=== PATIENT | female | born 1960 | race Caucasian/White ===

== ENCOUNTER 2022-06-13 07:43 | Inpatient (IN) ==
--- NOTE | 2022-04-25 13:11 | PAT Medication Instructions ---
Medication Instructions Date of Service April 25, 2022 Home Medications albuterol 90 mcg/actuation aerosol inhaler 90 mcg inhalation QID PRN Shortness Of Breath Or Wheezing ascorbic acid (vitamin C) 500 mg tablet (Vitamin C) 500 mg PO QPM buspirone 15 mg tablet 15 mg PO BID calcium carbonate 500 mg calcium (1,250 mg) tablet 500 mg PO QAM cholecalciferol (vitamin D3) 50 mcg (2,000 unit) tablet (Vitamin D3) 50 mcg PO QAM clonidine HCl 0.1 mg tablet 0.1 mg PO QAM docusate sodium 100 mg tablet (Stool Softener) 100 mg PO QAM etodolac 400 mg tablet 400 mg PO BID fluticasone propionate 110 mcg/actuation HFA aerosol inhaler 2 puff inhalation BID gabapentin 300 mg tablet 300 mg PO BID galcanezumab-gnlm 120 mg/mL subcutaneous syringe (Emgality) 120 mg subcut UD ixekizumab 80 mg/mL subcutaneous auto-injector (Taltz Autoinjector) 80 mg subcut UD ketorolac 10 mg tablet 10 mg PO TID PRN Pain omega-3 fatty acids 500 mg capsule 500 mg PO QAM oxycodone 10 mg tablet 10 mg PO Q6H PRN Pain promethazine 25 mg tablet 25 mg PO TID PRN Nausea turmeric 400 mg capsule 400 mg PO QAM vilazodone 40 mg tablet (Viibryd) 40 mg PO QAM ASK your surgeon for instructions etodolac 400 mg tablet 400 mg PO BID ketorolac 10 mg tablet 10 mg PO TID PRN Pain ASK your prescriber and surgeon galcanezumab-gnlm 120 mg/mL subcutaneous syringe (Emgality) 120 mg subcut UD ixekizumab 80 mg/mL subcutaneous auto-injector (Taltz Autoinjector) 80 mg subcut UD STOP taking 2 weeks before surgery omega-3 fatty acids 500 mg capsule 500 mg PO QAM turmeric 400 mg capsule 400 mg PO QAM DO NOT take the morning of surgery calcium carbonate 500 mg calcium (1,250 mg) tablet 500 mg PO QAM cholecalciferol (vitamin D3) 50 mcg (2,000 unit) tablet (Vitamin D3) 50 mcg PO QAM docusate sodium 100 mg tablet (Stool Softener) 100 mg PO QAM Take morning of surgery With a small sip of water, OTHERWISE NOTHING TO EAT OR DRINK AFTER MIDNIGHT: albuterol 90 mcg/actuation aerosol inhaler 90 mcg inhalation QID PRN Shortness Of Breath Or Wheezing (use if needed; please bring with you to hospital day of surgery if possible) buspirone 15 mg tablet 15 mg PO BID clonidine HCl 0.1 mg tablet 0.1 mg PO QAM fluticasone propionate 110 mcg/actuation HFA aerosol inhaler 2 puff inhalation BID gabapentin 300 mg tablet 300 mg PO BID oxycodone 10 mg tablet 10 mg PO Q6H PRN Pain (if needed) promethazine 25 mg tablet 25 mg PO TID PRN Nausea (if needed) vilazodone 40 mg tablet (Viibryd) 40 mg PO QAM Take evening before surgery albuterol 90 mcg/actuation aerosol inhaler 90 mcg inhalation QID PRN Shortness Of Breath Or Wheezing (if needed) ascorbic acid (vitamin C) 500 mg tablet (Vitamin C) 500 mg PO QPM buspirone 15 mg tablet 15 mg PO BID fluticasone propionate 110 mcg/actuation HFA aerosol inhaler 2 puff inhalation BID gabapentin 300 mg tablet 300 mg PO BID oxycodone 10 mg tablet 10 mg PO Q6H PRN Pain (if needed) promethazine 25 mg tablet 25 mg PO TID PRN Nausea (if needed) Other Notes If you have any questions please call us at [phone] or [phone] or [phone] or [phone]
--- NOTE | 2022-05-02 14:11 | Anesthesiology Consultation ---
Date of Service May 02, 2022 Assessment & Plan (1) Encounter for pre-operative examination: - to anesthesiologist discretion if cervical spine x-ray is needed DOS. Chart Review Chart Review: Acceptable Risk for Surgery and Patient seen in Pre Admission Testing Teaching & Discussion Pre-Anesthesia Teaching/Discussion Notes: Instructed NPO after midnight before surgery, except medications with 15 cc of water. Medication instructions provided according to the PAT guidelines. History Surgery Operation Date: 05/16/22 10:05 Proposed Procedures p L3-L4 Decompression and Fusion, L4-S1 Hardware Removal - Huey Bhatt DO Height/Weight Height: 5 ft Weight: 65.771 kg Allergies Allergy/AdvReac Type Severity Reaction Status Date / Time pregabalin [From Lyrica] AdvReac Mild Dizziness Verified 04/25/22 09:21 topiramate [From Topamax] AdvReac Mild disoriented Verified 04/25/22 09:21 Medications Home Medications Medication Instructions Recorded Confirmed Last Taken albuterol 90 mcg/actuation aerosol 90 mcg inhalation QID PRN 04/25/22 04/25/22 Unknown inhaler Shortness Of Breath Or Wheezing ascorbic acid (vitamin C) 500 mg 500 mg PO QPM 04/25/22 04/25/22 Unknown tablet (Vitamin C) buspirone 15 mg tablet 15 mg PO BID 04/25/22 04/25/22 Unknown calcium carbonate 500 mg calcium 500 mg PO QAM 04/25/22 04/25/22 Unknown (1,250 mg) tablet cholecalciferol (vitamin D3) 50 50 mcg PO QAM 04/25/22 04/25/22 Unknown mcg (2,000 unit) tablet (Vitamin D3) clonidine HCl 0.1 mg tablet 0.1 mg PO QAM 04/25/22 04/25/22 Unknown docusate sodium 100 mg tablet 100 mg PO QAM 04/25/22 04/25/22 Unknown (Stool Softener) etodolac 400 mg tablet 400 mg PO BID 04/25/22 04/25/22 Unknown fluticasone propionate 110 2 puff inhalation BID 04/25/22 04/25/22 Unknown mcg/actuation HFA aerosol inhaler gabapentin 300 mg tablet 300 mg PO BID 04/25/22 04/25/22 Unknown galcanezumab-gnlm 120 mg/mL 120 mg subcut UD 04/25/22 04/25/22 Unknown subcutaneous syringe (Emgality) ixekizumab 80 mg/mL subcutaneous 80 mg subcut UD 04/25/22 04/25/22 Unknown auto-injector (Taltz Autoinjector) ketorolac 10 mg tablet 10 mg PO TID PRN Pain 04/25/22 04/25/22 Unknown omega-3 fatty acids 500 mg capsule 500 mg PO QAM 04/25/22 04/25/22 Unknown oxycodone 10 mg tablet 10 mg PO Q6H PRN Pain 04/25/22 04/25/22 Unknown promethazine 25 mg tablet 25 mg PO TID PRN Nausea 04/25/22 04/25/22 Unknown turmeric 400 mg capsule 400 mg PO QAM 04/25/22 04/25/22 Unknown vilazodone 40 mg tablet (Viibryd) 40 mg PO QAM 04/25/22 04/25/22 Unknown dexlansoprazole 30 mg 30 mg PO QPM 05/02/22 05/02/22 Unknown capsule,biphase delayed release (Dexilant) Past Medical History Medical History (Updated 05/02/22 @ 14:16 by Irene Velarde PA-C) Ankylosing spondylitis Anxiety and depression Asthma controlled, stable per pt; last rescue inhaler use > 1 month ago Chronic pain GERD (gastroesophageal reflux disease) controlled, stable per pt History of anemia History of blood transfusion anemia, 2013 HNP (herniated nucleus pulposus) Migraine LEIF (obstructive sleep apnea) CPAP-compliant Rheumatoid arthritis Patient denies h/o stroke, seizures, heart attack, heart failure, DM, HTN, or blood clots. Exercise / Class Metabolic Activity II 4-5 Yardwork/Stairs/Walk up hill (denies chest discomfort or shortness of breath with 1 FOS) Past Family History Family History Other No family history of adverse response to anesthesia Past Surgical History Surgical History (Updated 05/02/22 @ 14:17 by Irene Velarde PA-C) History of abdominoplasty History of bilateral breast reduction surgery History of carpal tunnel release of both wrists History of lumbar surgery History of open reduction and internal fixation (ORIF) procedure right ankle Hx of appendectomy Hx of arthroscopic knee surgery left (03/2022- [facility]) Hx of colonoscopy Hx of endoscopy Nausea and vomiting after administration of anesthetic agent denies needing scop patch Past Anesthesia History No Family Hx of Anesthesia Complications and Other (slow to wake up, h/o post-op hypotension) History of PONV No Hx of Motion Sickness and History of PONV (denies needing scop patch) Social History Smoking Status: Former smoker tobacco type: cigarettes Smoking cigarettes per day: quit 10 yrs ago Do You Dip or Chew Tobacco: No Hx Alcohol Use: No Hx Substance Use: No substance use type: does not use Review of Systems Patient denies chest pain, shortness of breath, dyspnea on exertion, fever, ch ills, cough, wheezing, or palpitations. Physical Exam Vital Signs Vitals BP 101/70 (pt states this is typical BP reading) P 66 TEMP 98.8 SP02 97% on RA RESP 18 Physical Full cervical extension range of motion without pain TMD 3.5 finger breadths Mallampati Score 2 Dentition: partial left upper side; denies chipped or loose teeth, caps/crowns, implants or bridges Lungs: normal respiratory effort. Clear throughout to auscultation, no adventitious breath sounds Cardiac: regular rate and rhythm, no murmurs noted Carotid arteries: negative bruit bilat Lab Results Anesthesia Preop Results Results Anesthesia Widget: WBC 5.81 K/ul (4.8-10.8) 05/02/22 Hgb 11.6 g/dl (12.0-16.0) L 05/02/22 Hct 35.2 % (37.0-47.0) L 05/02/22 Plt 316 K/uL (130-400) 05/02/22 Na 142 mmol/L (136-145) 05/02/22 K 4.0 mmol/L (3.5-5.1) 05/02/22 Cl 108 mmol/L (98-107) H 05/02/22 CO2 29 mmol/L (21-32) 05/02/22 BUN 18 mg/dl (6-23) 05/02/22 Creat 0.68 mg/dl (0.6-1.2) 05/02/22 Glucose Level 81 mg/dl (70-99(Fasting)) 05/02/22 PT 10.8 Seconds (9.0-12.0) 05/02/22 PTT 25.3 Seconds (21.0-31.0) 05/02/22 INR 1.0 (0.9-1.1) 05/02/22 Urine Color Yellow 05/02/22 Urine Appearance Clear (Clear) 05/02/22 Urine pH 7.0 (4.5-7.5) 05/02/22 Urine Specific [place] 1.010 (1.000-1.030) 05/02/22 Urine Protein Negative (Negative) 05/02/22 Urine Glucose (UA) Negative (Negative) 05/02/22 Urine Ketones Negative (Negative) 05/02/22 Urine Blood Negative (Negative) 05/02/22 Urine Nitrite Negative (Negative) 05/02/22 Urine Bilirubin Negative (Negative) 05/02/22 Urine Urobilinogen Negative (Negative) 05/02/22 Urine Leukocyte Esterase 1+ (Negative) H 05/02/22 Urine WBC (Auto) 1-5 /hpf (0-5) 05/02/22 Urine RBC (Auto) 5-10 /hpf (0-4) H 05/02/22 Urine Hyaline Casts (Auto) 0 /lpf (0-5) 05/02/22 Urine Epithelial Cells (Auto) 20-30 /lpf (0-5) H 05/02/22 Urine Bacteria (Auto) Negative (Negative) 05/02/22 Blood Type AB Positive 05/02/22 Antibody Screen NEGATIVE 05/02/22 Testing Electrocardiogram Date: 05/02/22 NSR, rate 64 bpm Chest X-Ray Date: 05/02/22 No prior studies are available for comparison at the time of dictation. The cardiomediastinal silhouette is unremarkable. There is mild bibasilar atelecta sis. The lungs and pleural spaces are otherwise clear. There is no pneumothorax. The skeletal structures are osteopenic. The bony thorax appears intact. IMPRESSION: No active disease in the chest. Stress Test Date: 06/04/18 Pharmacologic MPHR not reported Not indicative of ischemia, nuclear portion not available COVID-19 Risk Screen Screening Information COVID-19 Screen Date: 05/02/22 Exposure 21 Days Family/Household +COVID Last 21 Days: No Exposure 10 Days Any COVID Exposure Last 10 Days: No Symptoms Last 10 Days Experienced COVID Sx Last 10 Days: No + COVID 0-90 Days COVID + in Last 0-90 Days: No
[~2022-06-13 07:43] MED LIST: ACETAMINOPHEN 500 MG TAB PO SCH; CeleBREX 200 MG CAP PO SCH; GABAPENTIN 300 MG CAP PO SCH; GABAPENTIN 600 MG DOSE PO SCH; LR 15ML/HR IV SCH; ceFAZolin 2000MG 2,000 MG/15 ML SYR IV SCH
[2022-06-13] MEDS ORDERED: ATROPINE SULFATE 0.1 MG/ML 10ML SYR IV PRN (07:51)
[2022-06-13] MEDS ORDERED: PROMETHAZINE HCL 6.25 MG in SODIUM CHLORIDE 0.9% 50 ML IV PRN (07:51)
[2022-06-13] MEDS ORDERED: ONDANSETRON INJ 2 MG/ML 2 ML VIAL IV PRN (07:51)
[2022-06-13] MEDS ORDERED: ePHEDrine sulfate 50 MG/ML AMP IV PRN (07:51)
[2022-06-13] MEDS ORDERED: MIDAZOLAM HCL 1 MG/ML 2ML VIAL ONE (08:35)
[2022-06-13] MEDS ORDERED: fentaNYL citrate PF 100 MCG/2 ML VIAL ONE (08:35)
[2022-06-13] MEDS ORDERED: PROPOFOL IV EMULSION 10 MG/ML 20 ML VIAL IV ONE (08:35)
[2022-06-13] MEDS ORDERED: DEXAMETHASONE SOD INJ 4 MG/ML VIAL ONE ×2 (08:37→08:41)
[2022-06-13] MEDS ORDERED: ROCURONIUM BROMIDE 10 MG/ML 5 ML VIAL IV ONE ×5 (08:37)
[2022-06-13] MEDS ORDERED: ONDANSETRON INJ 2 MG/ML 2 ML VIAL ONE (08:37)
[2022-06-13] MEDS ORDERED: LIDOCAINE 2% MPF LOCAL 5 ML VIAL ONE (08:37)
[2022-06-13] MEDS ORDERED: SUGAMMADEX SODIUM 200 MG/2 ML VIAL IV ONE (08:39)
--- NOTE | 2022-06-13 09:29 | History & Physical Report ---
Date of Service June 13, 2022 Assessment & Plan (1) Neurogenic claudication due to lumbar spinal stenosis: Plan: L3-L4 decompression and fusion, L4-S1 hardware removal History of Present Illness Chief Complaint: Back and leg pain Primary Care Provider: Huey Muhammad This is a 62-year-old female who presents with chronic persistent back and leg pain after failing course of nonoperative care she is here for surgical intervention. Allergies Allergy/AdvReac Type Severity Reaction Status Date / Time pregabalin [From Lyrica] AdvReac Mild Dizziness Verified 06/13/22 08:19 topiramate [From Topamax] AdvReac Mild disoriented Verified 06/13/22 08:19 morphine AdvReac Gastrointestinal Verified 06/13/22 08:20 Upset Home Medications Medication Instructions Recorded Confirmed Type albuterol 90 mcg/actuation aerosol 90 mcg inhalation QID PRN 04/25/22 06/13/22 History inhaler Shortness Of Breath Or Wheezing ascorbic acid (vitamin C) 500 mg 500 mg PO QPM 04/25/22 06/13/22 History tablet (Vitamin C) buspirone 15 mg tablet 15 mg PO BID 04/25/22 06/13/22 History calcium carbonate 500 mg calcium 500 mg PO QAM 04/25/22 06/13/22 History (1,250 mg) tablet cholecalciferol (vitamin D3) 50 50 mcg PO QAM 04/25/22 06/13/22 History mcg (2,000 unit) tablet (Vitamin D3) clonidine HCl 0.1 mg tablet 0.1 mg PO QAM 04/25/22 06/13/22 History docusate sodium 100 mg tablet 100 mg PO QAM 04/25/22 06/13/22 History (Stool Softener) etodolac 400 mg tablet 400 mg PO BID 04/25/22 06/13/22 History fluticasone propionate 110 2 puff inhalation BID 04/25/22 06/13/22 History mcg/actuation HFA aerosol inhaler gabapentin 300 mg tablet 300 mg PO BID 04/25/22 06/13/22 History galcanezumab-gnlm 120 mg/mL 120 mg subcut UD 04/25/22 06/13/22 History subcutaneous syringe (Emgality) ixekizumab 80 mg/mL subcutaneous 80 mg subcut UD 04/25/22 06/13/22 History auto-injector (Taltz Autoinjector) ketorolac 10 mg tablet 10 mg PO TID PRN Pain 04/25/22 06/13/22 History omega-3 fatty acids 500 mg capsule 500 mg PO QAM 04/25/22 06/13/22 History oxycodone 10 mg tablet 10 mg PO Q6H PRN Pain 04/25/22 06/13/22 History promethazine 25 mg tablet 25 mg PO TID PRN Nausea 04/25/22 06/13/22 History turmeric 400 mg capsule 400 mg PO QAM 04/25/22 06/13/22 History vilazodone 40 mg tablet (Viibryd) 40 mg PO QAM 04/25/22 06/13/22 History dexlansoprazole 30 mg 30 mg PO QPM 05/02/22 06/13/22 History capsule,biphase delayed release (Dexilant) trazodone 100 mg tablet 200 mg PO HS PRN Sleep 06/13/22 06/13/22 History Past Med/Surg History Medical History (Updated 06/13/22 @ 09:29 by Huey Bhatt DO) Ankylosing spondylitis Anxiety and depression Asthma controlled, stable per pt; last rescue inhaler use > 1 month ago Chronic pain GERD (gastroesophageal reflux disease) controlled, stable per pt History of anemia History of blood transfusion anemia, 2013 HNP (herniated nucleus pulposus) Migraine LEIF (obstructive sleep apnea) CPAP-compliant Rheumatoid arthritis Surgical History (Updated 05/02/22 @ 14:17 by Irene Velarde PA-C) History of abdominoplasty History of bilateral breast reduction surgery History of carpal tunnel release of both wrists History of lumbar surgery History of open reduction and internal fixation (ORIF) procedure right ankle Hx of appendectomy Hx of arthroscopic knee surgery left (03/2022- [facility]) Hx of colonoscopy Hx of endoscopy Nausea and vomiting after administration of anesthetic agent denies needing scop patch Family History Other No family history of adverse response to anesthesia Social History Smoking Status: Former smoker Cigarettes Per Day: quit 10 yrs ago; Second Hand Exposure: No; Do You Dip or Chew Tobacco: No; Tobacco Cessation Education Requested by Patient: No Hx Alcohol Use: No Hx Substance Use: No Preferred Language: Khmer Communication Ability: Effective Senior Analyst Programmer Required: No Beliefs That Will Affect Care: None Current Living Situation: Spouse Other Information That Helps Us Care for You: No Feels Safe at Home: Yes Safety Concerns: Feels Safe At This Time Assistive Devices: CPAP, Denture - Lower and Glasses Physical Exam Physical Exam: Patient is alert and oriented Heart regular rhythm Lungs clear Results & Data Results & Data Vital Signs (Past 12 Hours) Vital Signs Temp Pulse Resp BP Pulse Ox O2 Del Method 06/13/22 08:28 36.7 C 72 16 106/74 97 Room Air
--- NOTE | 2022-06-13 09:29 | History & Physical Bridge Note ---
Date of Service June 13, 2022 History & Physical Bridge Note I have examined the patient, reviewed the History & Physical and in the interval since the performance of the History & Physical I have noted the following changes of clinical significance: no changes noted
[2022-06-13] MEDS ORDERED: ceFAZolin 330 MG/ML 1 GM VIAL ONE (09:33)
[2022-06-13] MEDS ORDERED: BUPIVACAINE/EPINEPHRINE 0.25% 1:200,000 30 ML VIAL ONE (09:33)
[2022-06-13] MEDS ORDERED: FLOSEAL HEMOSTATIC MATRIX 10ML TOP ONE (10:41)
--- NOTE | 2022-06-13 11:17 | Operative Report ---
Post Operative Report Pre & Post Diagnosis Operation Date: 06/13/22 09:35 Pre-Op Diagnosis: Neurogenic claudication due to lumbar spinal stenosis Post-Op Diagnosis: Neurogenic claudication due to lumbar spinal stenosis I identified the patient and participated in the time-out.: Yes Procedure Operation Date: 06/13/22 09:35 Actual Procedures #1 removal of posterior instrumentation L4-S1. #2 exploration of fusion L4-S1. #3 lumbar decompression bilateral medial facetectomies and foraminotomies L2-L3 L3-L4. #4 posterior spinal fusion L3-L4 per #5 placement posterior instrumentation L3-S1. #6 interbody fusion L3-L4. #7 placement of Spira 12 x 26 mm cage at L3-L4. #8 placement locally harvested morselized autograft in the posterior gutters. #9 placement I factor amount of the test interbody space and posterior lateral gutters. Surgeon Huey Bhatt DO Charge Master Specialist Jennifer Curry Estimated Blood Loss 100 Findings Consistent with Post-Op Diagnosis Specimens None Indications This is a 8-year-old female who presents above-mentioned diagnosis after failing course of nonoperative care she is here for surgical intervention. Description of Procedure Patient was met with identified informed consent obtained. Patient was then taken to the operative suite underwent patient placed in a prone position Obdulio table supine. Operative prominences well-padded eyes inspected to ensure no external pressure placed upon them. Lumbar spine was prepped and draped in normal sterile fashion. Sharp dissection with assistance of bradycardia was performed to expose the transverse processes of L3 and instrumentation L4-L5 and S1 levels bilaterally. Then proceeded with the hardware bilaterally explore the fusion mass noted to be intact. I then performed a complete laminectomy of L3 partial medically of L2 including bilateral medial facetectomies and foraminotomies addressing severe spinal stenosis. Pedicle screws then placed at L3-L4 and S1 levels bilaterally with assistance of fluoroscopy and the properly sized iraida placed. By way the transforaminal approach and left pleat discectomy of L3-L4 was performed endplates curetted to subcortical bleeding bone and a 12 x 26 mm Spira cage with I factor tapped in position. The rods were then locked in final position bilaterally. The transverse processes of L3-L4 burred to subcortical bleeding bone. I factor amount of the test and locally harvested morselized autograft was placed in the posterior gutters. 15 round GREGORY drain inserted. The incision was then closed with 1 Vicryl the fascia 2-0 Vicryl subcutaneously and 4 Monocryl for final skin closure. Steri-Strips and sterile dressings placed. Patient awakened taken to PACU stable condition. Please note spinal cord monitoring was utilized at the procedure no changes noted. Lastly Jennifer Curry was present at the entire surgeon while the patient positioning complex portions of the surgery and final skin closure. I attest to the content of the Intraoperative Record and any orders documented therein. Any exceptions are noted below.
[2022-06-13] MEDS: fentaNYL citrate PF 100 MCG/2 ML VIAL IV PRN ×4 (11:35→11:50)
[2022-06-13] MEDS: HYDROmorphone INJ 1 MG/ML SYRINGE IV PRN ×6 (12:02→23:25)
--- NOTE | 2022-06-13 12:29 | Anesthesiology Progress Note ---
Date of Service June 13, 2022 Anesthesia Post Procedure Vital Signs Vital Signs: Temp Pulse Pulse Resp BP Pulse Ox O2 Del Method 06/13/22 12:20 72 12 99/65 L 93 Room Air 06/13/22 12:10 75 20 92/55 L 95 Room Air 06/13/22 12:00 72 13 101/65 100 Oxymask 06/13/22 11:50 75 19 97/60 L 98 Oxymask 06/13/22 11:40 74 12 93/59 L 99 Oxymask 06/13/22 11:30 36.3 C L 78 17 96/67 L 100 Oxymask 06/13/22 08:28 36.7 C 72 16 106/74 97 Room Air O2 Flow Rate 06/13/22 12:20 06/13/22 12:10 06/13/22 12:00 6 06/13/22 11:50 6 06/13/22 11:40 6 06/13/22 11:30 10 06/13/22 08:28 Pain Intensity Back: Pain Intensity: 7 Transfer of Care Handoff Completed per policy Notes Mental Status: alert / awake / arousable and participated in evaluation Patient Amnestic to Procedure: Yes Nausea / Vomiting: adequately controlled Pain: adequately controlled Airway Patency, RR, SpO2: stable & adequate BP & HR: stable & adequate Hydration State: stable & adequate Anesthetic Complications: no major complications apparent and Pt Satisfied with anesthetic care
[2022-06-13] MEDS: LACTATED RINGER'S 1,000 ML IV SCH ×2 (13:00→22:06)
--- NOTE | 2022-06-13 13:08 | Fluoroscopy Report ---
[place] lumbar spine 2-3V CLINICAL HISTORY: L3-L4 DECOMPRESSION AND FUSION L4-S1 HW REMOVAL COMPARISON STUDY: Lumbar spine radiographs February 02, 2015. FLUOROSCOPY TIME: 9 seconds. Ka, r: 5.27 mGy FLUOROSCOPIC IMAGES: 2 FINDINGS: Initially, hardware removal was performed. Previous L5-S1 discectomy with interbody spacer placement is noted. There is interval L3-L4 discectomy with interbody spacer placement. There are sharri ateral pedicle screws at the L3, L4 and S1 levels. IMPRESSION: Fluoroscopy provided during hardware removal and interval L3-L4 discectomy and L3-S1 fus ion. ACT 112: Negative or not required by law. Electronically signed by: Rolando Rossi M.D. 06/13/2022 1:06 PM
[2022-06-13] MEDS ORDERED: hydrOXYzine HCl 25 MG TAB PO PRN (13:11)
[2022-06-13] MEDS ORDERED: SOD PHOSPHATE/SOD BIPHOSPHATE ENEMA 132 ML BTL PR PRN (13:11)
[2022-06-13] MEDS ORDERED: ACETAMINOPHEN 500 MG TAB PO PRN (13:11)
[2022-06-13] MEDS ORDERED: LORazepam 2 MG/1 ML VIAL IV PRN (13:11)
[2022-06-13] MEDS ORDERED: bisacodyL 10 MG SUPP PR PRN (13:11)
[2022-06-13] MEDS ORDERED: ALUMINUM/MAGNESIUM SUSP 30 ML UDC PO PRN (13:11)
[2022-06-13] MEDS ORDERED: DO NOT ADMINISTER PNEUMOCOCCAL VACCINE PRN (13:11)
[2022-06-13] MEDS ORDERED: ACETAMINOPHEN 1,000 MG/100 ML VIAL IV PRN (13:11)
[2022-06-13] MEDS ORDERED: MAGNESIUM HYDROXIDE SUSP 30 ML UDC PO PRN (13:11)
[2022-06-13] MEDS ORDERED: NALOXONE HCL 0.4 MG/1 ML VIAL/CARP IV PRN (13:11)
[2022-06-13] MEDS ORDERED: PROMETHAZINE HCL 25 MG TAB PO PRN (13:11)
[2022-06-13] MEDS ORDERED: METOCLOPRAMIDE HCL INJ 5 MG/ML 2 ML VIAL IV PRN (13:11)
[2022-06-13] MEDS ORDERED: PROMETHAZINE HCL 12.5 MG in SODIUM CHLORIDE 0.9% 50 ML IV PRN (13:11)
[2022-06-13] MEDS ORDERED: LORazepam 0.5 MG TAB PO PRN (13:11)
[2022-06-13] MEDS ORDERED: ONDANSETRON 4 MG OD TAB PO PRN (13:11)
[2022-06-13] MEDS ORDERED: DO NOT ADMINISTER FLU VACCINE PRN (13:11)
[2022-06-13] MEDS ORDERED: ALBUTEROL HFA 8 GM INHALER INH PRN (13:15)
--- NOTE | 2022-06-13 13:31 | Consultation ---
Date of Consultation June 13, 2022 Assessment & Plan (1) Neurogenic claudication due to lumbar spinal stenosis: (2) Asthma: (3) Ankylosing spondylitis: (4) Anxiety and depression: (5) GERD (gastroesophageal reflux disease): (6) LEIF (obstructive sleep apnea): Plan 62 y/o s/p L4-L4 decompression and fusion surgery with hardware removal. Post op hip pain, likely related to Ankylosing Spondylitis. Has LEIF and wears CPAP at night. Will provide pain control per surgical admitting orders. Neurogenic claudication due to lumbar spinal stenosis: POD#0 s/p L3-L4 decompression and fusion, L4-S1 hardware removal with Dr. Bhatt. Per ortho for pain control, wound care, anticoagulation and activities. Monitor H&H, trend Hgb in AM. Pre op Hgb 3/ 11.6 continue incentive spirometry PT/OT when appropriate Lumbar X-ray performed post-op: Initially, hardware removal was performed. Previous L5-S1 discectomy with interbody spacer placement is noted. There is interval L3-L4 discectomy with interbody spacer placement. There are bilateral pedicle screws at the L3, L4 and S1 levels. Pt with pain in left hip post op; suspect exacerbated with ankylosing spondylitis; received IV Dilaudid; will give oral Oxycodone and reassess Ativan ordered PRN by surgical team Asthma: LEIF: Takes fluticasone and albuterol; continue Stable without exacerbation Wears CPAP nightly at home; will order CPAP QHS while here Ankylosing spondylitis: Takes Taltz (ixekizumab) Q2 months; continue as OPT Follows with Rheumatology with [facility] left hip pain post op; will place on on left hip Tremors related to ; takes Clonidine; hold and reassess in AM due to lower BP Anxiety and depression: Takes the Vilazodone and BuSpar; continue GERD: Takes Dexilant; continue Disposition: [facility] Code Status: Full Code VTE Prophylaxis: TEDs and SCDs I spent a total of 60 minutes coordinating, documenting, and providing care for this patient excluding time spent in the performance of separately billed services. All of the aforementioned completed while collaborating with the assigned attending physician for a full treatment plan. Please see their addendum for further details. Supervising Physician Co-Signing Physician Notes Pt is a 62 y/o F with hx of Ankylosing spondylitis, LEIF on CPAP, tremor, Asthma, Depression, anxiety, L DDD admitted for Lumbar Discectomy/fusion and consulted for medical comanagement. PE: Pt was in mild distress due to pain, well developed Lungs: CTA, no wheezing or crackles Cardiac: Normal S1/S2, no murmur Abd: soft, NT MSK: able to move her toes and feet b/l Psych: normal affect A/P: S/P Hardware removal with L3-L4 discectomy and L3-S1 Fusion: -POD#0 -pt is recovering well -PT/OT - pain management per primary team - VSS -monitor BMP and CBC Tremor: -per pt she takes Clonidine daily for tremor -- due to low normal BP will hold the clonidine Other chronic conditions: plan as above Agree with A/P by SONIA De La Torre History of Present Illness Requesting Physician: Dr. Bhatt Reason for Consultation: Postoperative medical management Attending Physician: Huey Bhatt, History of Present Illness Ms. Novlia Troy is a 62-year-old female that presented to the ED for an elective decompression and fusion surgery under the care of Dr. Bhatt after failed conservative nonoperative management. Intraoperatively, EBL 100mL. Post- op lumbar x-ray performed and previous L5-S1 discectomy with interbody spacer placement is noted. There is interval L3-L4 discectomy with interbody spacer placement. There are bilateral pedicle screws at the L3, L4 and S1 levels. Pt has had back surgery before 2014. Patient has a past medical history that includes ankylosing spondylitis with tremors, LEIF on CPAP, depression, and GERD. Pt denies MAZA, dizziness, SOB, chest pain, palpitations, abdominal pain, N/V/D, neuropathy and numbness and tingling. When I entered the room, she was weeping and complaining of left hip pain, along with incision pain. Patient had received one dose of IV Dilaudid just one hour prior. Discussed with nursing, will provide Oxycodone and reasses, along with consideration of administration of PRN Ativan. Will consider additional IV management if no improvement with oral Oxy. [facility] hospitalist service was consulted for postop medical management. We are available 11/09 via [employer] text for any additional assistance. Allergies Allergy/AdvReac Type Severity Reaction Status Date / Time pregabalin [From Lyrica] AdvReac Mild Dizziness Verified 04/25/23 08:19 topiramate [From Topamax] AdvReac Mild disoriented Verified 06/13/22 08:19 morphine AdvReac Gastrointestinal Verified 06/13/22 08:20 Upset Home Medications Medication Instructions Recorded Confirmed Type albuterol 90 mcg/actuation aerosol 90 mcg inhalation QID PRN 04/25/22 06/13/22 History inhaler Shortness Of Breath Or Wheezing ascorbic acid (vitamin C) 500 mg 500 mg PO QPM 04/25/22 06/13/22 History tablet (Vitamin C) buspirone 15 mg tablet 15 mg PO BID 04/25/22 06/13/22 History calcium carbonate 500 mg calcium 500 mg PO QAM 04/25/22 06/13/22 History (1,250 mg) tablet cholecalciferol (vitamin D3) 50 50 mcg PO QAM 04/25/22 06/13/22 History mcg (2,000 unit) tablet (Vitamin D3) clonidine HCl 0.1 mg tablet 0.1 mg PO QAM 04/25/22 06/13/22 History docusate sodium 100 mg tablet 100 mg PO QAM 04/25/22 06/13/22 History (Stool Softener) etodolac 400 mg tablet 400 mg PO BID 04/25/22 06/13/22 History fluticasone propionate 110 2 puff inhalation BID 04/25/22 06/13/22 History mcg/actuation HFA aerosol inhaler gabapentin 300 mg tablet 300 mg PO BID 04/25/22 06/13/22 History galcanezumab-gnlm 120 mg/mL 120 mg subcut UD 04/25/22 06/13/22 History subcutaneous syringe (Emgality) ixekizumab 80 mg/mL subcutaneous 80 mg subcut UD 04/25/22 06/13/22 History auto-injector (Taltz Autoinjector) ketorolac 10 mg tablet 10 mg PO TID PRN Pain 04/25/22 06/13/22 History omega-3 fatty acids 500 mg capsule 500 mg PO QAM 04/25/22 06/13/22 History oxycodone 10 mg tablet 10 mg PO Q6H PRN Pain 04/25/22 06/13/22 History promethazine 25 mg tablet 25 mg PO TID PRN Nausea 04/25/22 06/13/22 History turmeric 400 mg capsule 400 mg PO QAM 04/25/22 06/13/22 History vilazodone 40 mg tablet (Viibryd) 40 mg PO QAM 04/25/22 06/13/22 History dexlansoprazole 30 mg 30 mg PO QPM 05/02/22 06/13/22 History capsule,biphase delayed release (Dexilant) oxycodone 5 mg tablet 5 mg PO DAILY PRN pain #30 tabs 06/13/22 Rx tramadol 50 mg tablet 50 mg PO Q6H PRN pain, moderate 06/13/22 Rx #30 tabs trazodone 100 mg tablet 200 mg PO HS PRN Sleep 06/13/22 06/13/22 History Patient History Medical History (Updated 06/13/22 @ 13:27 by SONIA Kerr) Ankylosing spondylitis Anxiety and depression Asthma controlled, stable per pt; last rescue inhaler use > 1 month ago Chronic pain GERD (gastroesophageal reflux disease) controlled, stable per pt History of anemia History of blood transfusion anemia, 2013 HNP (herniated nucleus pulposus) Migraine LEIF (obstructive sleep apnea) CPAP-compliant Rheumatoid arthritis Surgical History (Updated 05/02/22 @ 14:17 by Irene Velarde PA-C) History of abdominoplasty History of bilateral breast reduction surgery History of carpal tunnel release of both wrists History of lumbar surgery History of open reduction and internal fixation (ORIF) procedure right ankle Hx of appendectomy Hx of arthroscopic knee surgery left (03/2022- Ann) Hx of colonoscopy Hx of endoscopy Nausea and vomiting after administration of anesthetic agent denies needing scop patch Family History Other No family history of adverse response to anesthesia Social History Smoking Status: Former smoker Cigarettes Per Day: quit 10 yrs ago; Second Hand Exposure: No; Do You Dip or Chew Tobacco: No; Tobacco Cessation Education Requested by Patient: No Hx Alcohol Use: No Hx Substance Use: No Preferred Language: Pakistani Communication Ability: Effective Nailhead Setter Required: No Beliefs That Will Affect Care: None Current Living Situation: Spouse Other Information That Helps Us Care for You: No Feels Safe at Home: Yes Safety Concerns: Feels Safe At This Time Assistive Devices: CPAP, Denture - Lower and Glasses Review of Systems Review of Systems: Neuro: (-) Falls, trauma, slurred speech HEENT: (-) MAZA, dizziness, dysphagia, visual or auditory changes CV: (-) CP, palpitations, swelling Resp: (-) SOB GI: (-) appetite changes, N/V/D, bowel changes : (-) urinary changes Skin: (-) rashes Psych: (-) anxiety, depression Physical Exam Physical Exam: Neuro: AAOx4, PERRLA, no aphagia, memory changes, CNII-XII grossly intact HEENT: head normocephalic, moist mucus membranes CV: S1/S2, (-) M/G/R, (-) edema, cap refill < 3 seconds GREGORY drain x1 with oumou red blood Resp: Lungs CTA in all oconnor. On RA GI: Abdomen S/NT/ND, Ax4 bowel sounds, (-) CVA tenderness Musculoskeletal: 5/5 B/L UE strength, 5/5 B/L LE strength. No gait disturbance Skin: (-) rashes , (-) erythema. Psych: euthymic mood Results & Data Vital Signs (Past 12 Hours) Vital Signs Temp Pulse Pulse Resp BP Pulse Ox O2 Del Method 06/13/22 12:50 Nasal Cannula 06/13/22 12:50 37.1 C 78 16 97/63 L 9 L Nasal Cannula 06/13/22 12:40 36.4 C L 71 15 99/59 L 96 Nasal Cannula 06/13/22 12:30 75 13 98/63 L 95 Nasal Cannula 06/13/22 12:20 72 12 99/65 L 93 Room Air 06/13/22 12:10 75 20 92/55 L 95 Room Air 06/13/22 12:00 72 13 101/65 100 Oxymask 06/13/22 11:50 75 19 97/60 L 98 Oxymask 06/13/22 11:40 74 12 93/59 L 99 Oxymask 06/13/22 11:30 36.3 C L 78 17 96/67 L 100 Oxymask 06/13/22 08:28 36.7 C 72 16 106/74 97 Room Air O2 Flow Rate 06/13/22 12:50 2 06/13/22 12:50 2 06/13/22 12:40 2 06/13/22 12:30 2 06/13/22 12:20 06/13/22 12:10 06/13/22 12:00 6 06/13/22 11:50 6 06/13/22 11:40 6 06/13/22 11:30 10 06/13/22 08:28 Diagnostic Findings Lumbar Spine X-Ray 06/13/22 09:35 FL lumbar spine 2-3V CLINICAL HISTORY: L3-L4 DECOMPRESSION AND FUSION L4-S1 HW REMOVAL COMPARISON STUDY: Lumbar spine radiographs February 02, 2015. FLUOROSCOPY TIME: 9 seconds. Ka, r: 5.27 mGy FLUOROSCOPIC IMAGES: 2 FINDINGS: Initially, hardware removal was performed. Previous L5-S1 discectomy with interbody spacer placement is noted. There is interval L3-L4 discectomy with interbody spacer placement. There are bilateral pedicle screws at the L3, L4 and S1 levels. IMPRESSION: Fluoroscopy provided during hardware removal and interval L3-L4 discectomy and L3-S1 fusion. ACT 112: Negative or not required by law. Electronically signed by: Rolando Rossi M.D. 06/13/2022 1:06 PM
[2022-06-13] MEDS: oxyCODONE HCL IR 5 MG TAB (IMMEDIATE RELEASE) PO PRN ×2 (13:48→17:58)
[2022-06-13] MEDS: HYDROmorphone INJ 0.5 MG/0.5 ML SYR IV PRN (16:23)
[2022-06-13] MEDS: ceFAZolin 1000MG 1,000 MG/7.5 ML SYR IV SCH (17:38)
[2022-06-13] MEDS: GABAPENTIN 300 MG CAP PO SCH (20:13)
[2022-06-13] MEDS: ASCORBIC ACID 500 MG TAB PO SCH (20:14)
[2022-06-13] MEDS: PANTOprazole 40 MG TAB PO SCH (20:14)
[2022-06-13] MEDS: busPIRone 15 MG TAB PO SCH (20:15)
[2022-06-13] MEDS: DOCUSATE SODIUM/SENNA 50/8.6MG TAB PO SCH (20:16)
[2022-06-13] MEDS: diphenhydrAMINE Capsule 25 MG CAP PO PRN (20:17)
[2022-06-14] MEDS: oxyCODONE HCL IR 5 MG TAB (IMMEDIATE RELEASE) PO PRN ×5 (01:17→22:42)
[2022-06-14] MEDS: ceFAZolin 1000MG 1,000 MG/7.5 ML SYR IV SCH ×2 (01:17→01:35)
[2022-06-14] MEDS: HYDROmorphone INJ 1 MG/ML SYRINGE IV PRN ×4 (02:20→19:51)
[2022-06-14] MEDS: traMADol HCL 50 MG TABLET PO PRN ×2 (04:42→22:39)
[2022-06-14] MEDS: ONDANSETRON INJ 2 MG/ML 2 ML VIAL IV PRN ×2 (05:28→11:58)
[2022-06-14] MEDS: POLYETHYLENE (MIRALAX) 17 GM PACK PO SCH ×4 (05:39→23:58)
[2022-06-14 07:41] LABS: Basophils # (auto) 0.04 K/uL (0-0.2); Basophils % (auto) 0.5 %; Eosinophils # (auto) 0.06 K/uL (0-0.50); Eosinophils % (auto) 0.7 %; Hematocrit (blood only) 30.8 % (37.0-47.0); Hemoglobin 10.1 g/dl (12.0-16.0); Immature Granulocytes # (auto) 0.02 K/uL (0.01-0.20); Immature Granulocytes % (auto) 0.2 %; Lymphocytes % (auto) 36.1 %; Mean Corpuscular Hgb Conc 32.8 g/dL (32.0-36.0); Mean Corpuscular Volume 91.4 fL (80.0-100.0); Neutrophils # (auto) 4.74 K/uL (1.40-6.50); Neutrophils % (auto) 53.5 %; Platelet Count 229 K/uL (130-400); RDW Coefficient of Variation 14.5 % (11.5-14.5); RDW Standard Deviation 48.7 fL (36.4-46.3); Red Blood Count 3.37 M/uL (4.20-5.40); White Blood Count 8.86 K/ul (4.8-10.8)
[2022-06-14] MEDS: LACTATED RINGER'S 1,000 ML IV SCH ×2 (08:10→17:36)
[2022-06-14 08:35] LABS: BUN Creatinine Ratio 12.3 (10-20); Calcium 8.6 mg/dl (8.6-10.3); Creatinine Clr Calc Pharmacy 89.2 ml/min; Est GFR (African American) 116.8 ml/min; Est GFR (Non-African American) 100.8 ml/min; Potassium 3.2 mmol/L (3.5-5.1)
[2022-06-14] MEDS ORDERED: cloNIDine HCL 0.1 MG TAB PO SCH (09:00)
[2022-06-14] MEDS ORDERED: POTASSIUM CHLORIDE CRTAB 20 MEQ TABCR PO STA (09:15)
[2022-06-14] MEDS: dexAMETHasone 6 MG in SYRINGE 0 ML IV SCH (10:03)
[2022-06-14] MEDS: busPIRone 15 MG TAB PO SCH ×2 (10:03→21:10)
[2022-06-14] MEDS: GABAPENTIN 300 MG CAP PO SCH ×2 (10:03→21:10)
[2022-06-14] MEDS: FLUTICASONE FUROATE 200MCG 14 PUFFS/INHALER INH SCH (10:04)
[2022-06-14] MEDS: CHOLECALCIFEROL 1,000 UNITS 25 MCG TAB PO SCH (10:04)
[2022-06-14] MEDS: CALCIUM CARBONATE 500 MG CHEWABLE TAB PO SCH (10:04)
[2022-06-14] MEDS: HYDROmorphone INJ 0.5 MG/0.5 ML SYR IV PRN (10:35)
--- NOTE | 2022-06-14 14:11 | Orthopedic Progress Note ---
Date of Service June 14, 2022 Assessment & Plan (1) Neurogenic claudication due to lumbar spinal stenosis: Plan: At this time we will continue physical therapy monitor GREGORY output hopefully discharge home in the next few days. Admission and Anticipated Discharge Date Admission Date: June 13, 2022 Subjective Back pain controlled leg pain markedly improved Physical Exam Physical Exam: Patient is constricted testing. Appears comfortable. Results & Data Vital Signs (Past 12 Hours) Vital Signs Temp Pulse Resp BP BP Pulse Ox O2 Del Method 06/14/22 08:00 80 18 96/60 L 96 Room Air 06/14/22 07:36 36.9 C 81 16 90/55 L 94 Nasal Cannula 06/14/22 05:41 103/68 06/14/22 02:48 37.2 C 70 16 93/58 L 98 Nasal Cannula O2 Flow Rate 06/14/22 08:00 06/14/22 07:36 2 06/14/22 05:41 06/14/22 02:48 2
[2022-06-14] MEDS: FAMOTIDINE 20 MG TAB PO PRN (14:13)
--- NOTE | 2022-06-14 14:15 | Hospitalist Progress Note ---
Date of Service June 14, 2022 Assessment & Plan (1) Neurogenic claudication due to lumbar spinal stenosis: (2) Asthma: (3) Ankylosing spondylitis: (4) Anxiety and depression: (5) GERD (gastroesophageal reflux disease): (6) LEIF (obstructive sleep apnea): Plan 62 y/o s/p L4-L4 decompression and fusion surgery with hardware removal. Post op hip pain, likely related to Ankylosing Spondylitis. Has LEIF and wears CPAP at night. Will provide pain control per surgical admitting orders. Neurogenic claudication due to lumbar spinal stenosis: POD#1 s/p L3-L4 decompression and fusion, L4-S1 hardware removal with Dr. Bhatt. Per ortho for pain control, wound care, anticoagulation and activities. Monitor H&H, trend Hgb in AM. Pre op Hgb 3/14 11.6 continue incentive spirometry PT/OT when appropriate Lumbar X-ray performed post-op: Initially, hardware removal was performed. Previous L5-S1 discectomy with interbody spacer placement is noted. There is interval L3-L4 discectomy with interbody spacer placement. There are bilateral pedicle screws at the L3, L4 and S1 levels. Pt with pain in left hip post op; suspect exacerbated with ankylosing spondylitis; received IV Dilaudid; will give oral Oxycodone and reassess Ativan ordered PRN by surgical team Hypotension BP on lower side this a.m. pt states typically runs 90s/70s she was dizzy this a.m. but has since resolved encourage fluid intake, slow movements clonidine on hold Asthma: LEIF: Takes fluticasone and albuterol; continue Stable without exacerbation Wears CPAP nightly at home; will order CPAP QHS while here Ankylosing spondylitis: Takes Taltz (ixekizumab) Q2 months; continue as OPT Follows with Rheumatology with [facility] left hip pain post op; will place on on left hip Tremors related to ; takes Clonidine; continue to hold given low blood pressure Anxiety and depression: Takes the Vilazodone and BuSpar; continue GERD: Takes Dexilant; continue Dis[facility]: [facility] Code Status: Full Code VTE Prophylaxis: TEDs and SCDs I spent a total of 45 minutes coordinating, documenting, and providing care for this patient excluding time spent in the performance of separately billed services. All of the aforementioned completed while collaborating with the assigned attending physician for a full treatment plan. Please see their addendum for further details. Admission and Anticipated Discharge Date Admission Date: June 13, 2022 Supervising Physician Co-Signing Physician Notes Patient was seen and examined independently at bedside. Chart reviewed. Case discussed with Lorrie MARTIN and agree with the documentation above with regards to HPI, exam and A/P. In summary, this is a 62 year old female with neurogenic claudication d/t lumbar spinal stenosis s/p spinal surgery by Dr Bhatt. Ortho is primary team and managing her pain meds, diet, activities and DVT ppx. She was complaining of pain during my encounter and just received her pain meds which helps. Could not sleep last night as she could not get her trazodone- her is bringing from home today. Tolerating diet well, passed gas, no N/V. BP on lower side- meds adjusted. Other chronic conditions stable. On exam, AAO, lying in bed, some discomfort due to pain, chest clear, HS normal, abdomen benign, GREGORY drain with serosang output, reaves with juli urine, no LE edema. Rest per primary team. Subjective Patient was seen and examined in room 323. Follow-up lumbar surgery. Patient's blood pressure was low this morning and she was complaining of being dizzy. She states blood pressure typically runs 90s over 70s. She is on clonidine but this is for tremors. She states when nursing tried to get her up this morning she felt dizzy like she could pass out. She denies fever, chills, sweats, chest pain, shortness of breath, diaphoresis, nausea, vomiting, abdominal pain. She is tolerating diet postsurgery. Nursing staff performed orthostatics which was negative. Later in the morning she was able to get up and walk to and from the bathroom and blood pressure remained stable. Review of Systems Review of Systems: All systems reviewed & are unremarkable except as noted in HPI & below Physical Exam Physical Exam: Gen: WD/WN, NAD, A&O x3 HEENT: Normocephalic, atraumatic, conjunctivae moist, sclerae anicteric, mucous membranes moist. Lung: Clear to Auscultation bilaterally, no wheezes/rales/rhonchi Heart: Regular rate, regular rhythm, no murmurs, rubs, or gallops Abdomen: Soft, NT, ND +BS x 4 Extremities: No edema, lumbar dressing CDI, GREGORY drain with serosanguineous drainage Skin: Warm, no rash, negative turgor. Results & Data Results & Data Vital Signs (Past 12 Hours) Vital Signs Temp Pulse Resp BP BP Pulse Ox O2 Del Method 06/14/22 08:00 80 18 96/60 L 96 Room Air 06/14/22 07:36 36.9 C 81 16 90/55 L 94 Nasal Cannula 06/14/22 05:41 103/68 06/14/22 02:48 37.2 C 70 16 93/58 L 98 Nasal Cannula O2 Flow Rate 06/14/22 08:00 06/14/22 07:36 2 06/14/22 05:41 06/14/22 02:48 2 Laboratory Results Short CBC 06/14/22 Range/Units 07:21 WBC 8.86 (4.8-10.8) K/ul Hgb 10.1 L (12.0-16.0) g/dl Hct 30.8 L (37.0-47.0) % Plt Count 229 (130-400) K/uL [facility] 06/14/22 07:21 Sodium 137 Potassium 3.2 L Chloride 100 Carbon Dioxide 34 H BUN 7 Creatinine 0.57 L Glucose 83 Calcium 8.6 Diagnostic Findings Short CBC 06/14/22 Range/Units 07:21 WBC 8.86 (4.8-10.8) K/ul Hgb 10.1 L (12.0-16.0) g/dl Hct 30.8 L (37.0-47.0) % Plt Count 229 (130-400) K/uL [facility] 06/14/22 07:21 Sodium 137 Potassium 3.2 L Chloride 100 Carbon Dioxide 34 H BUN 7 Creatinine 0.57 L Glucose 83 Calcium 8.6 Medications Administered Current Inpatient Medications Acetaminophen (Acetaminophen 500 Mg Tab) 1,000 mg PO Q8H PRN PRN Reason: MILD Pain Scale 1,2,3 & Pre PT Stop: 07/13/22 13:10 Al Hydrox/Mg Hydrox/Simethicone (Aluminum/Magnesium Susp 30 Ml Udc) 30 ml PO Q6H PRN PRN Reason: Dyspepsia Stop: 07/13/22 13:10 Albuterol (Albuterol Hfa 8 Gm Inhaler) 2 puffs INH QID PRN PRN Reason: Shortness Of Breath Or Wheezing Stop: 07/13/22 13:14 Ascorbic Acid (Ascorbic Acid 500 Mg Tab) 500 mg PO QPM [facility] Stop: 07/13/22 20:59 Last Admin: 06/13/22 20:14 Dose: 500 mg Bisacodyl (Bisacodyl 10 Mg Supp) 10 mg ME DAILY PRN PRN Reason: Constipation Stop: 07/13/22 13:10 Buspirone HCl (Buspirone 15 Mg Tab) 15 mg PO BID [facility] Stop: 07/13/22 20:59 Last Admin: 06/14/22 10:03 Dose: 15 mg Calcium Carbonate (Calcium Carbonate 500 Mg Chewable Tab) 500 mg PO QAM [facility] Stop: 07/14/22 08:59 Last Admin: 06/14/22 10:04 Dose: 500 mg Clonidine HCl (Clonidine Hcl 0.1 Mg Tab) 0.1 mg PO QAM [facility] Stop: 07/14/22 08:59 Diphenhydramine HCl (Diphenhydramine Capsule 25 Mg Cap) 25 mg PO Q6H PRN PRN Reason: Allergic Rhinitis/Insomnia Stop: 07/13/22 13:10 Last Admin: 06/13/22 20:17 Dose: 25 mg Famotidine (Famotidine 20 Mg Tab) 20 mg PO Q12H PRN PRN Reason: Dyspepsia Stop: 07/13/22 13:10 Last Admin: 06/14/22 14:13 Dose: 20 mg Fluticasone Furoate (Fluticasone Furoate 200mcg 14 Puffs/Inhaler) 1 puffs INH DAILY [facility]; Protocol Stop: 07/14/22 08:59 Last Admin: 06/14/22 10:04 Dose: 1 puffs Gabapentin (Gabapentin 300 Mg Cap) 300 mg PO BID [facility] Stop: 07/13/22 20:59 Last Admin: 06/14/22 10:03 Dose: 300 mg Hydromorphone HCl (Hydromorphone Inj 0.5 Mg/0.5 Ml Syr) 0.5 mg IV Q3H PRN PRN Reason: MODERATE Pain (Scale 4,5,6) & Pre PT Stop: 06/27/22 13:10 Last Admin: 06/14/22 10:35 Dose: 0.5 mg Hydromorphone HCl (Hydromorphone Inj 1 Mg/Ml Syringe) 1 mg IV Q3H PRN PRN Reason: SEVERE Pain (Scale 7,8,9,10) Stop: 06/27/22 13:10 Last Admin: 06/14/22 14:04 Dose: 1 mg Hydroxyzine HCl (Hydroxyzine Hcl 25 Mg Tab) 25 mg PO Q8H PRN PRN Reason: Anxiety Stop: 07/13/22 13:10 Lactated Ringer's (Lr) 1,000 mls @ 100 mls/hr IV .Q10H [facility] Stop: 07/13/22 13:10 Last Admin: 06/14/22 08:10 Dose: 100 mls/hr Promethazine HCl 12.5 mg/ (Sodium Chloride) 50.5 mls @ 202 mls/hr IV Q6H PRN PRN Reason: Nausea &/or Vomiting Stop: 07/13/22 13:10 Dexamethasone 6 mg/ Syringe 1.5 mls @ 1 mls/min IV DAILY [facility] Stop: 06/16/22 09:02 Last Admin: 06/14/22 10:03 Dose: 1 mls/min Influenza Virus Vaccine Quadrival (Do Not Administer Flu Vaccine) 1 each N/A PRN PRN PRN Reason: Notification Stop: 07/13/22 13:10 Lorazepam (Lorazepam 0.5 Mg Tab) 0.5 mg PO Q8H PRN PRN Reason: Sedation/Anxiety Stop: 07/13/22 13:10 Last Admin: 06/13/22 14:30 Dose: 0.5 mg Lorazepam (Lorazepam 2 Mg/1 Ml Vial) 0.5 mg IV Q8H PRN PRN Reason: Sedation/Anxiety Stop: 07/13/22 13:10 Magnesium Hydroxide (Magnesium Hydroxide Susp 30 Ml Udc) 30 ml PO Q24H PRN PRN Reason: Constipation Stop: 07/13/22 13:10 Metoclopramide HCl (Metoclopramide Hcl Inj 5 Mg/Ml 2 Ml Vial) 10 mg IV Q6H PRN PRN Reason: Nausea &/or Vomiting Stop: 07/13/22 13:10 Miscellaneous (Order Awaiting Action [Vilazodone [Viibryd] 40 Mg Tablet]) 1 each N/A QS [facility] Stop: 07/13/22 15:59 Last Admin: 06/14/22 00:30 Dose: Not Given Naloxone HCl (Naloxone Hcl 0.4 Mg/1 Ml Vial/Carp) 0.1 mg IV Q5M PRN PRN Reason: Oversedation/Resp depression Stop: 07/13/22 13:10 Ondansetron HCl (Ondansetron Inj 2 Mg/Ml 2 Ml Vial) 4 mg IV Q6H PRN PRN Reason: Nausea &/or Vomiting Stop: 07/13/22 13:10 Last Admin: 06/14/22 11:58 Dose: 4 mg Ondansetron HCl (Ondansetron 4 Mg Od Tab) 4 mg PO Q6H PRN PRN Reason: Nausea Stop: 07/13/22 13:10 Oxycodone HCl (Oxycodone Hcl Ir 5 Mg Tab (Immediate Release)) 5 - 10 mg PO Q4H PRN PRN Reason: Pain & Pre PT Stop: 06/27/22 13:10 Last Admin: 06/14/22 12:11 Dose: 10 mg Pantoprazole Sodium (Pantoprazole 40 Mg Tab) 40 mg PO QPM [facility]; Protocol Stop: 07/13/22 20:59 Last Admin: 06/13/22 20:14 Dose: 40 mg Pneumococcal Polyvalent Vaccine (Do Not Administer Pneumococcal Vaccine) 1 each N/A PRN PRN PRN Reason: Notification Stop: 07/13/22 13:10 Polyethylene Glycol (Polyethylene (Miralax) 17 Gm Pack) 17 gm PO Q6 [facility] Stop: 07/14/22 05:59 Last Admin: 06/14/22 12:12 Dose: 17 gm Promethazine HCl (Promethazine Hcl 25 Mg Tab) 25 mg PO TID PRN PRN Reason: Nausea Stop: 07/13/22 13:10 Senna/Docusate Sodium (Docusate Sodium/Senna 50/8.6mg Tab) 2 tab PO HS [facility] Stop: 07/13/22 20:59 Last Admin: 06/13/22 20:16 Dose: 2 tab Sodium Biphosphate/Sodium Phosphate (Sod Phosphate/Sod Biphosphate Enema 132 Ml Btl) 132 ml ME ONE PRN PRN Reason: Constipation Stop: 07/13/22 13:10 Tramadol HCl (Tramadol Hcl 50 Mg Tablet) 50 - 100 mg PO Q4H PRN PRN Reason: Moderate-Severe pain & Pre PT Stop: 07/13/22 13:10 Last Admin: 06/14/22 04:42 Dose: 100 mg Trazodone HCl (Trazodone Hcl 100 Mg Tab) 200 mg PO HS PRN PRN Reason: Sleep Stop: 07/13/22 13:10 Vitamin D (Cholecalciferol 1,000 Units 25 Mcg Tab) 2,000 units PO QAM [facility] Stop: 07/14/22 08:59 Last Admin: 06/14/22 10:04 Dose: 2,000 units
[2022-06-14] MEDS: PANTOprazole 40 MG TAB PO SCH (21:09)
[2022-06-14] MEDS: DOCUSATE SODIUM/SENNA 50/8.6MG TAB PO SCH (21:09)
[2022-06-14] MEDS: traZODone HCL 100 MG TAB PO PRN (21:09)
[2022-06-14] MEDS: ASCORBIC ACID 500 MG TAB PO SCH (21:10)
[2022-06-15] MEDS: HYDROmorphone INJ 1 MG/ML SYRINGE IV PRN ×6 (00:02→22:45)
[2022-06-15] MEDS: oxyCODONE HCL IR 5 MG TAB (IMMEDIATE RELEASE) PO PRN ×5 (03:04→21:35)
[2022-06-15] MEDS: LACTATED RINGER'S 1,000 ML IV SCH ×2 (03:05→13:44)
[2022-06-15] MEDS: POLYETHYLENE (MIRALAX) 17 GM PACK PO SCH ×3 (06:06→17:17)
[2022-06-15] MEDS ORDERED: SODIUM CHLORIDE 0.9% 1000ML 1,000 ML IV SCH (08:00)
[2022-06-15] MEDS: FLUTICASONE FUROATE 200MCG 14 PUFFS/INHALER INH SCH (09:06)
[2022-06-15] MEDS: busPIRone 15 MG TAB PO SCH ×2 (09:07→21:34)
[2022-06-15] MEDS: CALCIUM CARBONATE 500 MG CHEWABLE TAB PO SCH (09:07)
[2022-06-15] MEDS: GABAPENTIN 300 MG CAP PO SCH ×2 (09:07→21:34)
[2022-06-15] MEDS: CHOLECALCIFEROL 1,000 UNITS 25 MCG TAB PO SCH (09:07)
[2022-06-15] MEDS: dexAMETHasone 6 MG in SYRINGE 0 ML IV SCH (09:07)
--- NOTE | 2022-06-15 09:08 | Orthopedic Progress Note ---
Date of Service June 15, 2022 Assessment & Plan (1) Neurogenic claudication due to lumbar spinal stenosis: Plan: At this time we will continue physical therapy monitor her GREGORY output anticipate discharge home tomorrow. Admission and Anticipated Discharge Date Admission Date: June 13, 2022 Subjective Back pain controlled leg pain markedly improved Physical Exam Physical Exam: On exam patient is good strength testing. Peers comfortable. Results & Data Vital Signs (Past 12 Hours) Vital Signs Temp Pulse Resp BP BP Pulse Ox O2 Del Method 06/15/22 07:06 37 C 75 17 91/53 L 92 Room Air 06/15/22 06:03 91/59 L 06/14/22 23:18 37 C 63 16 91/58 L 96 Room Air
--- NOTE | 2022-06-15 12:32 | Hospitalist Progress Note ---
Date of Service June 15, 2022 Assessment & Plan (1) Neurogenic claudication due to lumbar spinal stenosis: (2) Asthma: (3) Ankylosing spondylitis: (4) Anxiety and depression: (5) GERD (gastroesophageal reflux disease): (6) LEIF (obstructive sleep apnea): Plan 62 y/o s/p L4-L4 decompression and fusion surgery with hardware removal. Post op hip pain, likely related to Ankylosing Spondylitis. Has LEIF and wears CPAP at night. Will provide pain control per surgical admitting orders. Neurogenic claudication due to lumbar spinal stenosis: POD#2 s/p L3-L4 decompression and fusion, L4-S1 hardware removal with Dr. Bhatt. Diet, DVT prophylaxis, activities and pain management per orthopedics. continue incentive spirometry, bowel regimen Low normal BP-states this is normal for her. BP in 90s. Asymptomatic. No lightheadedness or dizziness. Asthma: LEIF: Takes fluticasone and albuterol; continue Stable without exacerbation Wears CPAP nightly at home; will order CPAP QHS while here Ankylosing spondylitis: Takes Taltz (ixekizumab) Q2 months; continue as OPT Follows with Rheumatology with [facility], [place], operated by [facility] left hip pain post op; will place on on left hip Tremors related to ; takes Clonidine; continue to hold given low blood pressure Anxiety and depression: Takes the Vilazodone and BuSpar; continue GERD: Takes Dexilant; continue Disposition: Per primary team DVT prophylaxis-per primary team Admission and Anticipated Discharge Date Admission Date: June 13, 2022 Subjective Patient was seen and examined at bedside. States she is in pain after the therapy today. She received pain medication 1 hour prior to the therapy. Normal oral intake. Voiding without issues. Passing gas but still no bowel movement yet. Last bowel movement was 4 days ago however, it is not unusual for her. She also states her blood pressure is always on the lower side and she does not have any lightheadedness or dizziness. No fever, chills, chest pain or shortness of breath nausea vomiting Review of Systems Review of Systems: All systems reviewed & are unremarkable except as noted in Subjective Physical Exam Physical Exam: General: Sitting in chair, not in distress, on room air HEENT: EOMI, ALFREDO, MMM Chest: Clear breath sounds bilaterally, no wheezes or crackles CVS: Regular rate and rhythm, normal heart sounds, no murmur Abdomen: Soft, non tender, not distended, normal bowel sounds Neuro: Awake, alert, oriented, conversing well, non focal Extremities: No cyanosis, clubbing or edema GREGORY drain with serosanguineous output Results & Data Results & Data Vital Signs (Past 12 Hours) Vital Signs Temp Pulse Resp BP Pulse Ox O2 Del Method 06/15/22 07:06 37 C 75 17 91/53 L 92 Room Air 06/15/22 06:03 91/59 L Medications Administered Current Inpatient Medications Acetaminophen (Acetaminophen 500 Mg Tab) 1,000 mg PO Q8H PRN PRN Reason: MILD Pain Scale 1,2,3 & Pre PT Stop: 07/13/22 13:10 Last Admin: 06/14/22 16:30 Dose: 1,000 mg Al Hydrox/Mg Hydrox/Simethicone (Aluminum/Magnesium Susp 30 Ml Udc) 30 ml PO Q6H PRN PRN Reason: Dyspepsia Stop: 07/13/22 13:10 Albuterol (Albuterol Hfa 8 Gm Inhaler) 2 puffs INH QID PRN PRN Reason: Shortness Of Breath Or Wheezing Stop: 07/13/22 13:14 Ascorbic Acid (Ascorbic Acid 500 Mg Tab) 500 mg PO QPM COLBY Stop: 07/13/22 20:59 Last Admin: 06/14/22 21:10 Dose: 500 mg Bisacodyl (Bisacodyl 10 Mg Supp) 10 mg WA DAILY PRN PRN Reason: Constipation Stop: 07/13/22 13:10 Buspirone HCl (Buspirone 15 Mg Tab) 15 mg PO BID [facility] Stop: 07/13/22 20:59 Last Admin: 06/15/22 09:07 Dose: 15 mg Calcium Carbonate (Calcium Carbonate 500 Mg Chewable Tab) 500 mg PO QAM [facility] Stop: 07/14/22 08:59 Last Admin: 06/15/22 09:07 Dose: 500 mg Clonidine HCl (Clonidine Hcl 0.1 Mg Tab) 0.1 mg PO QAM [facility] Stop: 07/14/22 08:59 Diphenhydramine HCl (Diphenhydramine Capsule 25 Mg Cap) 25 mg PO Q6H PRN PRN Reason: Allergic Rhinitis/Insomnia Stop: 07/13/22 13:10 Last Admin: 06/13/22 20:17 Dose: 25 mg Famotidine (Famotidine 20 Mg Tab) 20 mg PO Q12H PRN PRN Reason: Dyspepsia Stop: 07/13/22 13:10 Last Admin: 06/14/22 14:13 Dose: 20 mg Fluticasone Furoate (Fluticasone Furoate 200mcg 14 Puffs/Inhaler) 1 puffs INH DAILY [facility]; Protocol Stop: 07/14/22 08:59 Last Admin: 06/15/22 09:06 Dose: 1 puffs Gabapentin (Gabapentin 300 Mg Cap) 300 mg PO BID COLBY Stop: 07/13/22 20:59 Last Admin: 06/15/22 09:07 Dose: 300 mg Hydromorphone HCl (Hydromorphone Inj 0.5 Mg/0.5 Ml Syr) 0.5 mg IV Q3H PRN PRN Reason: MODERATE Pain (Scale 4,5,6) & Pre PT Stop: 06/27/22 13:10 Last Admin: 06/14/22 10:35 Dose: 0.5 mg Hydromorphone HCl (Hydromorphone Inj 1 Mg/Ml Syringe) 1 mg IV Q3H PRN PRN Reason: SEVERE Pain (Scale 7,8,9,10) Stop: 06/27/22 13:10 Last Admin: 06/15/22 10:12 Dose: 1 mg Hydroxyzine HCl (Hydroxyzine Hcl 25 Mg Tab) 25 mg PO Q8H PRN PRN Reason: Anxiety Stop: 07/13/22 13:10 Lactated Ringer's (Lr) 1,000 mls @ 100 mls/hr IV .Q10H [facility] Stop: 07/13/22 13:10 Last Admin: 06/15/22 03:05 Dose: 100 mls/hr Promethazine HCl 12.5 mg/ (Sodium Chloride) 50.5 mls @ 202 mls/hr IV Q6H PRN PRN Reason: Nausea &/or Vomiting Stop: 07/13/22 13:10 Dexamethasone 6 mg/ Syringe 1.5 mls @ 1 mls/min IV DAILY COLBY Stop: 06/16/22 09:02 Last Admin: 06/15/22 09:07 Dose: 1 mls/min Influenza Virus Vaccine Quadrival (Do Not Administer Flu Vaccine) 1 each N/A PRN PRN PRN Reason: Notification Stop: 07/13/22 13:10 Lorazepam (Lorazepam 0.5 Mg Tab) 0.5 mg PO Q8H PRN PRN Reason: Sedation/Anxiety Stop: 07/13/22 13:10 Last Admin: 06/13/22 14:30 Dose: 0.5 mg Lorazepam (Lorazepam 2 Mg/1 Ml Vial) 0.5 mg IV Q8H PRN PRN Reason: Sedation/Anxiety Stop: 07/13/22 13:10 Magnesium Hydroxide (Magnesium Hydroxide Susp 30 Ml Udc) 30 ml PO Q24H PRN PRN Reason: Constipation Stop: 07/13/22 13:10 Last Admin: 06/15/22 07:54 Dose: 30 ml Metoclopramide HCl (Metoclopramide Hcl Inj 5 Mg/Ml 2 Ml Vial) 10 mg IV Q6H PRN PRN Reason: Nausea &/or Vomiting Stop: 07/13/22 13:10 Last Admin: 06/14/22 16:33 Dose: 10 mg Miscellaneous (Order Awaiting Action [Vilazodone [Viibryd] 40 Mg Tablet]) 1 each N/A QS [facility] Stop: 07/13/22 15:59 Last Admin: 06/15/22 09:05 Dose: Not Given Naloxone HCl (Naloxone Hcl 0.4 Mg/1 Ml Vial/Carp) 0.1 mg IV Q5M PRN PRN Reason: Oversedation/Resp depression Stop: 07/13/22 13:10 Ondansetron HCl (Ondansetron Inj 2 Mg/Ml 2 Ml Vial) 4 mg IV Q6H PRN PRN Reason: Nausea &/or Vomiting Stop: 07/13/22 13:10 Last Admin: 06/14/22 11:58 Dose: 4 mg Ondansetron HCl (Ondansetron 4 Mg Od Tab) 4 mg PO Q6H PRN PRN Reason: Nausea Stop: 07/13/22 13:10 Oxycodone HCl (Oxycodone Hcl Ir 5 Mg Tab (Immediate Release)) 5 - 10 mg PO Q4H PRN PRN Reason: Pain & Pre PT Stop: 06/27/22 13:10 Last Admin: 06/15/22 07:54 Dose: 10 mg Pantoprazole Sodium (Pantoprazole 40 Mg Tab) 40 mg PO QPM COLBY; Protocol Stop: 07/13/22 20:59 Last Admin: 06/14/22 21:09 Dose: 40 mg Pneumococcal Polyvalent Vaccine (Do Not Administer Pneumococcal Vaccine) 1 each N/A PRN PRN PRN Reason: Notification Stop: 07/13/22 13:10 Polyethylene Glycol (Polyethylene (Miralax) 17 Gm Pack) 17 gm PO Q6 COLBY Stop: 07/14/22 05:59 Last Admin: 06/15/22 06:06 Dose: 17 gm Promethazine HCl (Promethazine Hcl 25 Mg Tab) 25 mg PO TID PRN PRN Reason: Nausea Stop: 07/13/22 13:10 Senna/Docusate Sodium (Docusate Sodium/Senna 50/8.6mg Tab) 2 tab PO HS COLBY Stop: 07/13/22 20:59 Last Admin: 06/14/22 21:09 Dose: 2 tab Sodium Biphosphate/Sodium Phosphate (Sod Phosphate/Sod Biphosphate Enema 132 Ml Btl) 132 ml WA ONE PRN PRN Reason: Constipation Stop: 07/13/22 13:10 Tramadol HCl (Tramadol Hcl 50 Mg Tablet) 50 - 100 mg PO Q4H PRN PRN Reason: Moderate-Severe pain & Pre PT Stop: 07/13/22 13:10 Last Admin: 06/14/22 04:42 Dose: 100 mg Trazodone HCl (Trazodone Hcl 100 Mg Tab) 200 mg PO HS PRN PRN Reason: Sleep Stop: 07/13/22 13:10 Last Admin: 06/14/22 21:09 Dose: 200 mg Vitamin D (Cholecalciferol 1,000 Units 25 Mcg Tab) 2,000 units PO QAM COLBY Stop: 07/14/22 08:59 Last Admin: 06/15/22 09:07 Dose: 2,000 units
[2022-06-15] MEDS: ASCORBIC ACID 500 MG TAB PO SCH (21:33)
[2022-06-15] MEDS: diphenhydrAMINE Capsule 25 MG CAP PO PRN (21:33)
[2022-06-15] MEDS: DOCUSATE SODIUM/SENNA 50/8.6MG TAB PO SCH (21:34)
[2022-06-15] MEDS: PANTOprazole 40 MG TAB PO SCH (21:34)
[2022-06-15] MEDS: traZODone HCL 100 MG TAB PO PRN (22:44)
[2022-06-16] MEDS: POLYETHYLENE (MIRALAX) 17 GM PACK PO SCH ×2 (00:36→06:29)
[2022-06-16] MEDS: LACTATED RINGER'S 1,000 ML IV SCH (00:38)
[2022-06-16] MEDS: oxyCODONE HCL IR 5 MG TAB (IMMEDIATE RELEASE) PO PRN ×3 (01:33→10:42)
[2022-06-16] MEDS: HYDROmorphone INJ 1 MG/ML SYRINGE IV PRN ×2 (02:14→07:27)
[2022-06-16] MEDS ORDERED: bisacodyL 10 MG SUPP PR STA (02:24)
[2022-06-16 09:04] LABS: Hematocrit (blood only) 33.4 % (37.0-47.0); Hemoglobin 11.1 g/dl (12.0-16.0)
[2022-06-16] MEDS: CALCIUM CARBONATE 500 MG CHEWABLE TAB PO SCH (09:05)
[2022-06-16] MEDS: dexAMETHasone 6 MG in SYRINGE 0 ML IV SCH (09:06)
[2022-06-16] MEDS: busPIRone 15 MG TAB PO SCH (09:06)
[2022-06-16] MEDS: GABAPENTIN 300 MG CAP PO SCH (09:06)
[2022-06-16] MEDS: FLUTICASONE FUROATE 200MCG 14 PUFFS/INHALER INH SCH (09:06)
[2022-06-16] MEDS: CHOLECALCIFEROL 1,000 UNITS 25 MCG TAB PO SCH (09:06)
[2022-06-16] MEDS: FAMOTIDINE 20 MG TAB PO PRN (09:12)
[2022-06-16 09:16] LABS: BUN Creatinine Ratio 6.7 (10-20); Calcium 9.7 mg/dl (8.6-10.3); Creatinine Clr Calc Pharmacy 84.7 ml/min; Est GFR (African American) 114.8 ml/min; Est GFR (Non-African American) 99.1 ml/min; Potassium 3.6 mmol/L (3.5-5.1)
--- NOTE | 2022-06-16 11:10 | Discharge Summary ---
Date of Service June 16, 2022 Admission HPI Per Admitting Provider This is a 62-year-old female who presents with chronic persistent back and leg pain after failing course of nonoperative care she is here for surgical intervention. Principal Diagnosis Lumbar spinal stenosis with neurogenic claudication Discharge Data Allergies Allergy/AdvReac Type Severity Reaction Status Date / Time pregabalin [From Lyrica] AdvReac Mild Dizziness Verified 06/13/22 08:19 topiramate [From Topamax] AdvReac Mild disoriented Verified 06/13/22 08:19 morphine AdvReac Gastrointestinal Verified 06/13/22 08:20 Upset Consultations 06/13/22 13:11 Consult Hospitalist Routine Procedures Performed Operation Date: 06/13/22 09:35 Actual Procedures p L3-L4 Decompression and Fusion, Interbody Cage at L3-L4, Spinal Cord Monitoring(Not Applicable) - Huey Bhatt DO s L4-S1 Hardware Removal,(Not Applicable) - Huey Bhatt DO Ordered Studies 06/13/22 09:35 FL lumbar spine 2-3V Routine Hospital Course (1) Neurogenic claudication due to lumbar spinal stenosis: Patient underwent lumbar decompression fusion tolerated this well was taken to orthopedic for postoperative. Postop day 1 she was up and ambulating progress postop day #2 on postop day #3 pain well controlled GREGORY drain decreasing appropriately. Excellent strength testing. Separately discharged home. Discharge orders and instructions found in the chart for further review. Total Time Total Time Spent Total Time Spent (In Minutes): 20 minutes Discharge Plan Discharge Items Patient Disposition: Home - Self-Care Reason For Visit: Spinal Stenosis, Lumbar Region without Neurogenic Discharge Diagnosis: Lumbar spinal stenosis with neurogenic claudication Activity: As commented below Non-emergency contact: Primary Care Provider Call non-emergency contact if: you have any medication questions Follow-up/Referrals: Cristal Ceballos DO [Outside Practitioners] - Diet: Regular Ambulatory Orders: XR cervical [id number] routine (Routine) Timeframe: 1 Day Location: Determined by Patient Ordered By: Irene Nicole Attending Provider Instructions: ACTIVITY RECOMMENDATIONS: SELF CARE INSTRUCTIONS AFTER THORACIC/LUMBAR FUSIONS 1. You may walk to your tolerance. It is good exercise for your legs and back. Expect some back and intermittent leg aches and pains. 2. You may perform "counter-top" level activities (make a sandwich, tayo with a project, etc.). 3. No bending or lifting of more than 10 pounds or back twisting of any nature (roll like a log when turning in bed). 4. You may ride in a car for 20-30 minutes at a time. No driving until after your first visit with your doctor. 5. Frequent changes of position and restricting sitting to 30 minutes at a time will help limit the amount of back spasms and stiffness you may experience. 6. You may discontinue the use of ambulatory aids (cane, crutches, etc.) once your strength and confidence allow. 7. You may set up inspector the shower and let water strike your incision when you arrive home at least once daily. Do not take a tub bath, sit in a hot tub or go into a swimming pool until after your first recheck in the office. SPECIAL CARE INSTRUCTIONS: VERY IMPORTANT TO READ AND REVIEW A. Your surgical incision has been closed with a cosmetic suture under the skin that will dissolve in about 6 weeks. In 14 days, you can use a pair of clean scissors and cut the suture that is left outside of the skin at the ends of your incision. 1. The small skin tapes can be removed 7 days after surgery if they have not fallen off by that point. 2. You may keep the wound open to air as much as possible to promote healing after post-op day number 5 unless told otherwise by your doctor. 3. If you think the wound looks like it is becoming infected (redness or worsening drainage) and/or you are experiencing fever, chill or worsening back pain and muscle spasms, contact the office so that we may evaluate you as soon as possible. B. Complications are uncommon, but please contact us if you have any signs or symptoms of: 1. wound infection (fever higher than 102.5 degrees F, redness, separation of wound, drainage, or increasing pain from the incision) 2. blood clots in legs (pain, swelling, redness and warmth in legs) 3. urinary tract infection (fever higher than 102.5 degrees F, burning upon urination or increased frequency of urination) 4. nerve problems (inability to walk on your toes or heels, numbness, loss of bowel or bladder control) 5. any other symptoms that concern you C. Please call the office at if you have any concerns or questions about your operation or recovery. D. No smoking! Smoking drastically decreases the chance of a solid fusion. E. Do not take any anti-inflammatory medications (Indocin, Advil, Motrin, Aspirin, Naprosyn, etc.) as these may inhibit the chance of a solid fusion. Tylenol is okay to take for pain. MANAGING PAIN AFTER SPINAL SURGERY 1. Narcotic medication is intended for short-term use and will be provided for surgical pain. Surgical pain usually lasts for a period of 4-6 weeks. Narcotic medication includes Percocet, Vicodin, Darvocet, Tylenol #3 or Lortab. 2. Longer-term pain is more appropriately treated with non-narcotic medication such as Tylenol ES. 3. Muscle spasm is not appropriately treated with narcotics. Muscle relaxers such as Soma, Flexeril or Skelaxin can be used along with Tylenol ES. 4. Remember that we all live with some "aches and pains". This is not unusual or uncommon after an injury or as we get older. a. Back pain is expected and may include muscle spasms for 4 to 6 weeks after surgery. The pain should gradually improve. If the pain worsens for no apparent reason, please contact the office. b. Intermittent leg pain may also be experienced and should not be concerned about unless it worsens for no apparent reason. If so, please contact the office. 5. We will provide appropriate medication within the normal guidelines of their prescribed use. We will also be very cautious and aware of potential abuse and extended duration of patients' medication needs. a. Pain medications are for your comfort and to assist with sleep and rest so that the tissue can heal. They are not provided in order to return to normal activity and should not be used through the day. To do so or worsening pain at night can result from ongoing tissue damage and development of tolerance to the prescribed medicine. 6. Please allow 2-3 days to process refills. Prescriptions will not be mailed but must be picked up at the office. FOLLOW UP VISIT: Keep your scheduled follow-up appointment. Any questions, please call the office at . Pending Studies at Discharge: No Stand-Alone Forms: [facility], Smoking Cessation Medications and DC Order Prescriptions: New tramadol 50 mg tablet 50 mg PO Q6H PRN (Reason: pain, moderate) Qty: 30 0RF oxycodone 5 mg tablet 5 mg PO DAILY PRN (Reason: pain) Qty: 30 0RF Continued clonidine HCl 0.1 mg Tablet 0.1 mg PO QAM calcium carbonate 500 mg calcium (1,250 mg) Tablet 500 mg PO QAM ascorbic acid (vitamin C) [Vitamin C] 500 mg Tablet 500 mg PO QPM promethazine 25 mg Tablet 25 mg PO TID PRN (Reason: Nausea) docusate sodium [Stool Softener] 100 mg Tablet 100 mg PO QAM buspirone 15 mg Tablet 15 mg PO BID gabapentin 300 mg Tablet 300 mg PO BID omega-3 fatty acids 500 mg Capsule 500 mg PO QAM oxycodone 10 mg Tablet 10 mg PO Q6H PRN (Reason: Pain) cholecalciferol (vitamin D3) [Vitamin D3] 50 mcg (2,000 unit) Tablet 50 mcg PO QAM vilazodone [Viibryd] 40 mg Tablet 40 mg PO QAM Rx Instructions: must administer with a meal/food Taltz Autoinjector 80 mg/mL Auto-Injector 80 mg SUBCUT UD Rx Instructions: monthly turmeric 400 mg Capsule 400 mg PO QAM etodolac 400 mg Tablet 400 mg PO BID ketorolac 10 mg Tablet 10 mg PO TID PRN (Reason: Pain) albuterol 90 mcg/actuation Aerosol 90 mcg INHALATION QID PRN (Reason: Shortness Of Breath Or Wheezing) fluticasone propionate 110 mcg/actuation Hfa Aerosol Inhaler 2 puff INHALATION BID Emgality Syringe 120 mg/mL Syringe 120 mg SUBCUT UD Rx Instructions: monthly dexlansoprazole [Dexilant] 30 mg Capsule,Biphase Delayed Releas 30 mg PO QPM trazodone 100 mg Tablet 200 mg PO HS PRN (Reason: Sleep) Discharge Orders: Discharge Order (Routine); Ordered 06/16/22 Ordered By: Huey Bhatt Admission Data Admit Date/Time: 06/13/22 11:22 Attending Provider: Huey Bhatt Admit Provider: Huey Bhatt Primary Care Provider: Huey Muhammad Other Providers: Nancy Aleman ; Michael Farrar ; Lorrie Rudd
--- NOTE | 2022-06-16 14:09 | Hospitalist Progress Note ---
Date of Service June 16, 2022 Assessment & Plan (1) Neurogenic claudication due to lumbar spinal stenosis: (2) Asthma: (3) Ankylosing spondylitis: (4) Anxiety and depression: (5) GERD (gastroesophageal reflux disease): (6) LEIF (obstructive sleep apnea): Plan 62 y/o s/p L4-L4 decompression and fusion surgery with hardware removal. Post op hip pain, likely related to Ankylosing Spondylitis. Has LEIF and wears CPAP at night. Will provide pain control per surgical admitting orders. Neurogenic claudication due to lumbar spinal stenosis: POD#3 s/p L3-L4 decompression and fusion, L4-S1 hardware removal with Dr. Bhatt. Diet, DVT prophylaxis, activities and pain management per orthopedics. continue incentive spirometry, bowel regimen Low normal BP-states this is normal for her. BP in 90s. Asymptomatic. No lightheadedness or dizziness. Asthma: LEIF: Takes fluticasone and albuterol; continue Stable without exacerbation Wears CPAP nightly at home; will order CPAP QHS while here Ankylosing spondylitis: Takes Taltz (ixekizumab) Q2 months; continue as OPT Follows with [facility]umatology with [facility] left hip pain post op; will place on on left hip Tremors related to ; takes Clonidine; held while inpatient due to low normal blood pressure Patient complaining of significant nightmares, which may be attributed to holding the clonidine Encourage patient to resume clonidine when returns home Anxiety and depression: Takes the Vilazodone and BuSpar; continue GERD: Takes Dexilant; continue Disposition: Per primary team DVT prophylaxis-per primary team Patient was seen and examined in collaboration with Dr. Farrar. 35 minutes was spent performing exam, discussion with patient, specialists and viewing all new laboratories. Admission and Anticipated Discharge Date Admission Date: June 13, 2022 Supervising Physician Co-Signing Physician Notes Patient was seen and examined independently at bedside. Chart reviewed. Case discussed with Lorrie MARTIN and agree with the documentation above with regard to history, physical exam and assessment plan. In summary, this is a 62-year-old female with history of lumbar spinal stenosis status post spinal surgery by Dr. Bhatt. Postoperative stay has been unremarkable. She is recovering well as expected after surgery and has remained stable from hospitalist perspective. She is being discharged per primary team. Subjective Patient was seen and examined in room 323. Follow-up lumbar procedure. Patient complains of significant nightmares which is unusual for her. Overall back feels stiff and complains of pain at incision site but otherwise denies any radicular symptoms. She is ambulating well, but slow. Denies fever, chills, sweats, lightheadedness, dizziness, chest pain, shortness breath, nausea, vomit, abdominal pain. She is passing gas. Review of Systems Review of Systems: All systems reviewed & are unremarkable except as noted in HPI & below Physical Exam Physical Exam: Gen: WD/WN, NAD, A&O x3 HEENT: Normocephalic, atraumatic, conjunctivae moist, sclerae anicteric, mucous membranes moist. Lung: Clear to Auscultation bilaterally, no wheezes/rales/rhonchi Heart: Regular rate, regular rhythm, no murmurs, rubs, or gallops Abdomen: Soft, NT, ND +BS x 4 Extremities: No edema, lumbar dressing CDI, GREGORY drain with serosanguineous drainage Skin: Warm, no rash, negative turgor. Results & Data Results & Data Vital Signs (Past 12 Hours) Vital Signs Temp Pulse Resp BP Pulse Ox O2 Del Method 06/16/22 06:40 94 Room Air 06/16/22 06:39 37.3 C 79 16 99/63 L 91 Room Air Laboratory Results Short CBC 06/16/22 Range/Units 08:20 Hgb 11.1 L (12.0-16.0) g/dl Hct 33.4 L (37.0-47.0) % BMP 06/16/22 08:20 Sodium 142 Potassium 3.6 Chloride 101 Carbon Dioxide 34 H BUN 4 L Creatinine 0.60 Glucose 93 Calcium 9.7
== END 2022-06-16 13:13 | disposition home or self-care (01) | DRG 455 ==
LOC: ASU 07:43 → 3E 11:22